=== PATIENT | female | born 1990 | race Caucasian/White ===

== ENCOUNTER 2022-02-13 13:39 | Outpatient (CLI) | payer OTHER, SELFPAY ==
--- NOTE | ~2022-02-13 | XR_ITS ---
XR ankle LT min 3V DATE: 02/13/2022 14:04 INDICATION: Left ankle and foot pain TECHNIQUE: 4 views COMPARISON: None FINDINGS: Slight posterior and prominent plantar calcaneal enthesopathy without erosive change or per iostitis. No fracture or dislocation of the ankle or disruption of the ankle mortise. No periosteal reaction or bone destruction. IMPRESSION: Calcaneal enthesopathy Reviewed, dictated and finalized at location B. IMPRESSION: Calcaneal enthesopathy
== END 2022-02-13 13:40 | disposition home or self-care (01) ==
LOC: ANHIMG 13:48
PROVIDERS: PCP Internal Medicine; Visit Provider Internal Medicine
DX: M25.572 Pain in left ankle and joints of left foot (principal); M77.32 Calcaneal spur, left foot
CPT/HCPCS: 73610